=== PATIENT | female | born 1985 | race Caucasian/White ===

== ENCOUNTER 2017-01-27 23:04 | Emergency (ER) | payer OTHER ==
[2017-01-27 23:22] VITALS: BP 175/105
== END 2017-01-28 00:33 | disposition home or self-care (01) ==
LOC: ED 23:04
DX: T38.1X5A Adverse effect of thyroid hormones and substitutes, initial encounter (principal); T47.0X5A Adverse effect of histamine H2-receptor blockers, initial encounter; R10.84 Generalized abdominal pain; Y92.89 Other specified places as the place of occurrence of the external cause; Z79.899 Other long term (current) drug therapy
CPT/HCPCS: J1885